=== PATIENT | female | born 1980 | race African-American/Black ===

== ENCOUNTER 2016-07-30 23:50 | Emergency (ER) | payer OTHER ==
--- NOTE | ~2016-07-30 | CR72 ---
[facility] A Service of [facility] & [facility] RADIOLOGY TEXT RESULTS PATIENT: SUMANTH CAGE LOCATION: [facility] : 84 UNIT #: [id number] AGE: [address]: Radha Keller APRN SEX: F ORDER DR: [id number] [facility] [address] [place], [place] [address] [id number] E MR#: [id number] Acc #: [id number] NAME: SUMANTH CAGE : 1980 SEX: F STUDY DATE/TIME: 07/30/2016 23:38 UNIT: [facility] ROOM: STUDY DESCRIPTION: CR Chest Single View Portable Attending Physician: Radha Keller A.P.R.N. Ordering Physician: Radha Keller A.P.R.N. Primary Care Physician: Primary Care Physician No MEDICAL IMAGING REPORT This report is preliminary unless electronic signature is present EXAM Portable chest. INDICATION Asthma attack, shortness of air for 1 day. COMPARISON 11/18/2007 FINDINGS A portable view of the chest was obtained. The heart size and vascularity are normal. The lungs are clear and the bones are normal. IMPRESSION No active disease. Dictated by... Odin Desai M.D. THIS IS AN ELECTRONICALLY VERIFIED REPORT Odin Desai M.D. at 07/31/2016 5:54 AM Sukumar TD: 07/31/2016 03:21 JOB #: [id number] MEDICAL IMAGING REPORT Page 1 of 1 COPY
[~2016-07-30 23:50] MED LIST: ALBUTEROL17 G1 IH; ALBUTEROL17 GM INH; BIRTH CONTROL; INH; LEXAPRO PO; MUCINEX DM1 TAB.SR . PO; MULTI-VITAMIN1 TAB PO; PREDNISONE PO; PRENATAL VITAMI1 TA3 PO; PYRIDOXINE
== END 2016-07-31 00:50 | disposition home or self-care (01) ==
LOC: CED 23:50
DX: J45.909 Unspecified asthma, uncomplicated (principal)
CPT/HCPCS: 71010; 94640; 99283

== ENCOUNTER 2016-09-02 11:37 | Emergency (ER) | payer OTHER ==
--- NOTE | ~2016-09-02 | CR72 ---
[facility] A Service of [facility] & [facility] RADIOLOGY TEXT RESULTS PATIENT: SUMANTH CAGE LOCATION: [facility] : 84 UNIT #: [id number] AGE: [address]: Phil Love DO SEX: F ORDER DR: [id number] [facility] [address] [place], [place] [address] [id number] MR#: [id number] Acc #: [id number] NAME: SUMANTH CAGE : 1980 SEX: F STUDY DATE/TIME: 09/02/2016 13:08 UNIT: [facility] ROOM: STUDY DESCRIPTION: CR Chest Single View Portable Attending Physician: Phil Love D.O. Ordering Physician: Phil Love D.O. Primary Care Physician: No Primary Care Physician MEDICAL IMAGING REPORT This report is preliminary unless electronic signature is present EXAM Portable chest, 09/02/2016. HISTORY 35-year-old female with shortness of air beginning yesterday. COMPARISON Chest, 07/30/2016. FINDINGS Frontal chest demonstrates clear lungs. No pleural effusion or pneumothorax. Heart size and mediastinum are normal. Pulmonary vasculature normal. IMPRESSION No acute cardiopulmonary findings. Dictated by... Ron Soria M.D. THIS IS AN ELECTRONICALLY VERIFIED REPORT Ron Soria M.D. at 09/03/2016 8:58 AM ANATOLY/matt TD: 09/02/2016 13:56 JOB #: [id number] MEDICAL IMAGING REPORT Page 1 of 1 COPY
[2016-09-02 13:53] LABS: BUN/CREATININE RATIO 6.25; CALCIUM SERUM 9.4 mg/dL (8.4-10.2); CREATININE SERUM 0.8 mg/dL (0.6-1.4); GLOM FILT RATE Estimated 112.4 mL/min (>60); POTASSIUM 3.6 mmol/L (3.5-5.1)
== END 2016-09-02 14:26 | disposition home or self-care (01) ==
LOC: CED 11:37
PROVIDERS: Emergency Medicine
DX: J45.901 Unspecified asthma with (acute) exacerbation (principal)
CPT/HCPCS: 36415; 71010; 80048; 85379; 94640; 96374; 99284; J2930